=== PATIENT | male | born 1995 | race Caucasian/White ===

== ENCOUNTER 2024-12-29 03:55 | Emergency (ER) | payer OTHER, SELFPAY ==
--- NOTE | ~2024-12-29 | CT_ITS ---
CT abdomen pelvis w con Clinical History: left flank pain, poss stone . Comparison: None Technique: Axial images lung bases to symphysis pubis 100 mL Omnipaque 350 Coronal, sagittal reformats CT images acquired with automatic exposure control for dose reduction DLP: 651 mGy-cm Findings: Lung bases: Clear. Visualized heart and pericardium: Unremarkable. Liver: Tiny probable cyst along dome. Gallbladder: Unremarkable. Spleen: Unremarkable. Pancreas: Unremarkable. Adrenal glands: Unremarkable. Kidneys: Right kidney- No hydronephrosis. No renal stones. Left kidney- mild hydronephrosis. Perinephric stranding. Probable 1 mm upper pole stone. Distal esophagus/stomach: Unremarkable. Small bowel loops: Normal caliber and wall thickness. Colon: Normal caliber and wall thickness. Normal RLQ appendix. Nodes: No enlarged nodes. Peritoneum: No ascites. No free air. Urinary bladder: 2 mm stone left UVJ. Prostate: Unremarkable. Bones: No acute bony abnormality. Soft tissues: Unremarkable. Aorta: No aneurysm or dissection. IVC: Unremarkable. Main portal vein/SMV/splenic vein: Patent. IMPRESSION: 1. Mild hydronephrosis left kidney due to 2 mm UVJ stone. Reviewed, dictated and finalized at location R.
[2024-12-29 04:03] VITALS: BP 143/91; PULSE 91; RESP 20; O2SAT 100
[2024-12-29 04:06] VITALS: TEMP 36.6
--- NOTE | 2024-12-29 04:08 | ED.MALEGU ---
HPI - Male Genitourinary General Chief complaint: Urogenital-Male Stated complaint: possible kidney stone Time Seen by Provider: 12/29/24 03:58 Source: patient and family Mode of arrival: ambulatory Limitations: no limitations History of Present Illness HPI Narrative: This is a 29-year-old male no significant past medical history presents to the ED for flank pain. Patient states that about an hour ago, he was woken up with severe left flank pain that has begun to radiate to his left lower quadrant. He has had some nausea but no vomiting. He has had urinary urgency. Denies hematuria, fevers, chills, chest pain, shortness of breath, changes in bowel movements. He has never had this pain before. Related Data Allergies Allergy/AdvReac Type Severity Reaction Status Date / Time No Known Allergies Allergy Mild Verified 12/29/24 04:05 Review of Systems Review of Systems: Gen.: Denies fevers or chills Eyes: Denies eye pain or visual change ENT: Denies congestion Respiratory: Denies shortness of breath or cough CV: Denies chest pain or palpitations GI: As per HPI as per HPI Musculoskeletal: Denies back pain or muscle pain Neuro: Denies numbness, tingling, weakness or focal weakness Skin: Denies rash Except as documented, all other systems reviewed and negative Exam Narrative: APPEARANCE: Uncomfortable appearing, nontoxic, resting in bed EYES: EOMI HEENT: Normocephalic, atraumatic, OMM RESPIRATORY: No respiratory distress Clear to auscultation bilaterally with no rhonchi wheezing or rales. CARDIOVASCULAR: Regular rate and rhythm without murmurs rubs or gallops. ABDOMINAL: Soft, mild left-sided abdominal pain, CVA tenderness on the left MUSCULOSKELETAl: Moves all extremities. No clubbing, cyanosis or edema. NEURO: Awake and alert. Following commands, speech normal, no focal deficits SKIN:: Warm, dry. No rashes lesions or abrasions PSYCHIATRIC: Normal affect/mood, Course Vital Signs Vital signs: Vital Signs Pulse Rate 91 12/29/24 04:03 Respiratory Rate 20 12/29/24 04:03 Blood Pressure 143/91 H 12/29/24 04:03 Pulse Oximetry 100 12/29/24 04:03 Oxygen Delivery Room Air 12/29/24 04:03 Temperature 97.9 F 12/29/24 04:06 Pulse Rate 91 09/16/25 04:03 Respiratory Rate 20 12/29/24 04:03 Blood Pressure 143/91 H 12/29/24 04:03 Pulse Oximetry 100 12/29/24 04:03 Oxygen Delivery Room Air 12/29/24 04:03 MDM - Male Genitourinary MDM Narrative Medical decision making narrative: 29-year-old male who presents to the ED for left flank. On initial evaluation, patient was in mild distress, afebrile, hemodynamically stable. He did have CVA tenderness on the left. He had a mild leukocytosis at 12.5. CMP was without significant abnormalities. UA clear. Patient was given Toradol, Zofran, 1 L NS bolus with significant improvement of his pain. CT abdomen/pelvis was obtained and did reveal a 3 mm stone at the left UVJ. On re-evaluation, patient had complete resolution of his pain. He was deemed appropriate for discharge at time. He was advised follow-up with his PCP in the next week for evaluation. Patient was agreeable to this plan. Given strict return precautions. Differential Diagnosis Differential diagnosis: Likely other (UTI, ureterolithiasis, pyelonephritis, constipation, mass) Medical Records Attestation: I reviewed the patient's medical records. Lab Data Attestation: I reviewed the patient's lab results. 12/29/24 04:08 12/29/24 04:08 Labs: Lab Results 12/29/24 Range/Units 04:08 WBC 12.5 H (4.5-10.0) K/mm3 RBC 4.82 (4.6-6.20) M/mm3 Hgb 13.6 L (14.0-18.0) g/dL Hct 41.0 L (42.0-52.0) % MCV 85.1 (80-100) fl MCH 28.2 (26-34) pg MCHC 33.2 (32-36) g/dl RDW 11.9 (11.5-14.5) % Plt Count 267 (150-375) k/mm3 MPV 10.2 (7.4-10.4) fl Immature Gran % (Auto) 0.2 (0-0.5) % Neut % (Auto) 77.9 H (45.5-73.1) % Lymph % (Auto) 13.4 L (18.3-44.2) % [place] % (Auto) 6.9 (2.6-8.5) % Eos % (Auto) 1.3 (0-4.4) % Baso % (Auto) 0.3 (0.2-1.2) % Lymph # (Auto) 1.68 (0.9-3.2) K/mm3 [place] # (Auto) 0.9 H (0.1-0.6) K/mm3 Eos # (Auto) 0.2 (0-0.3) K/mm3 Baso # (Auto) 0.0 (0.0-0.1) K/mm3 Abs Immat Gran (auto) 0.03 (0.00-0.031) K/mm3 Absolute Neuts (auto) 9.8 H (1.3-6.7) K/mm3 Absolute Nucleated RBC 0.000 (0.0-0.012) K/mm3 Nucleated RBC % 0.0 (0.0-0.2) % Sodium 138 (137-145) mmol/L Potassium 4.1 (3.4-5.0) mmol/L Chloride 103 (98-107) mmol/L Carbon Dioxide 27 (22-30) mmol/L Anion Gap 8 (4-12) mmol/L BUN 19 (9-20) mg/dL Creatinine 1.14 (0.7-1.3) mg/dL Estim Creat Clear Calc 89 ml/min Estimated GFR > 60 (59 - ) Glucose 108 (65-110) mg/dL Calcium 9.1 (8.4-10.2) mg/dL Total Bilirubin 1.0 (0.2-1.3) mg/dL AST 30 (17-59) U/L ALT 37 (6-50) U/L Alkaline Phosphatase 105 (38-126) U/L Total Protein 7.2 (6.3-8.2) g/dL Albumin 4.5 (3.5-5.1) g/dL Urine Color Yellow (Yellow) Urine Appearance Clear (Clear) Urine pH 6.5 (5.0-9.0) Ur Specific [place] 1.030 (1.001-1.035) Urine Protein Negative (Negative) mg/dL Urine Glucose (UA) Negative (Negative) mg/dL Urine Ketones Trace H (Negative) mg/dL Ur Blood (Man) Negative (Negative) Urine Nitrate Negative (Negative) Urine Bilirubin Negative (Negative) Urine Urobilinogen 1.0 (<2.0) mg/dL Leukocyte Esterase Rfl Negative (Negative) KEHINDE/UL Imaging Data Attestation: I personally reviewed and interpreted this imaging study as follows: My impression: CT abdomen/pelvis on my interpretation: Approximately 3 mm stone within the bladder. No hydronephrosis Discharge Plan Discharge Clinical Impression: Ureterolithiasis Patient Disposition: Home Condition: Stable Instructions: Antibiotic Form, Kidney Stones (ED) Additional Instructions: Take Tylenol ibuprofen for ear pain. Take Zofran as prescribed. Follow-up with your PCP in the next week for re-evaluation. Return the ED for new or worsening symptoms. Patient Language: Kyrgyz Prescriptions: New ondansetron 4 mg tablet,disintegrating 4 mg PO Q8H PRN (Reason: nausea and vomiting) Qty: 14 0RF Follow-up/Referrals: PHYSICIAN,AUTOMOBILE BUMPER STRAIGHTENER [Primary Care Provider, Internal Medicine] Eyad Donovan MD [Physician, Family Practice]
[2024-12-29] MEDS: SODIUM CHLORIDE 0.9% IV 1,000 ML 999 ML IV CONT (04:13)
[2024-12-29] MEDS: ONDANSETRON INJ 4 MG/2 ML VIAL IV PUSH (04:13)
[2024-12-29] MEDS: KETOROLAC 30 MG/ML VIAL (*BKC) IV PUSH (04:13)
[2024-12-29 04:24] LABS: Add Urine Microscopic? NO; Appearance Urine Clear (Clear); Glucose Urine UA Negative (Negative); Hematocrit 41.0 % (42.0-52.0); Hemoglobin 13.6 g/dL (14.0-18.0); Immature Granulocyte Percent A 0.2 % (0-0.5); Leukocyte Esterase Ur Negative LEU/UL (Negative); Lymphocytes Absolute Auto 1.68 K/mm3 (0.9-3.2); Mean Corpuscular HGB Conc 33.2 g/dl (32-36); Mean Corpuscular Hemoglobin 28.2 pg (26-34); Mean Corpuscular Volume 85.1 fl (80-100); Nitrate Urine Negative (Negative); Nucleated Red Blood Cells Absolute Auto 0.000 K/mm3 (0.0-0.012); Nucleated Red Blood Cells Perc 0.0 % (0.0-0.2); Platelet Count Result 267 k/mm3 (150-375); Red Blood Count 4.82 M/mm3 (4.6-6.20); Specific Grav Ur 1.030 (1.001-1.035); White Blood Count 12.5 K/mm3 (4.5-10.0)
[2024-12-29 04:37] LABS: Alanine Aminotransferase 37 U/L (6-50); Albumin Level 4.5 g/dL (3.5-5.1); Alkaline Phosphatase 105 U/L (38-126); Anion Gap 8 mmol/L (4-12); Aspartate Amino Transferase 30 U/L (17-59); Bilirubin,Total 1.0 mg/dL (0.2-1.3); Blood Urea Nitrogen 19 mg/dL (9-20); Calcium 9.1 mg/dL (8.4-10.2); Carbon Dioxide 27 mmol/L (22-30); Chloride 103 mmol/L (98-107); Estimated CRCL calculation 89 ml/min; Estimated Glomerular Filt Rate > 60; Glucose 108 mg/dL (65-110); Potassium 4.1 mmol/L (3.4-5.0); Sodium 138 mmol/L (137-145); Total Protein 7.2 g/dL (6.3-8.2)
== END 2024-12-29 05:56 | disposition home or self-care (01) ==
PROVIDERS: Emergency Provider Student in an Organized Health Care Education/Training Program
DX: N20.1 Calculus of ureter (principal)
CPT/HCPCS: 36415; 74177; 80053; 81003; 85025; 96361; 96374; 96375; 99284; J1885; J2405; J7030; Q9967

== ENCOUNTER 2025-03-13 16:52 | Emergency (ER) | payer OTHER, SELFPAY ==
--- NOTE | ~2025-03-13 | CT_ITS ---
EXAMINATION: CT diagnostic chest w con, 03/13/2025 18:30 DIRECTOR OF ACCOUNTING HISTORY: chest pain, negative chest x-ray COMPARISON: No comparisons available. TECHNIQUE: CT scan of the chest was performed with contrast. Isovue 300, 92cc injected IV. One or more of the following dose reduction techniques were used: automated exposure control, adjustment of the mA and/or kV according to patient size, use of iterative reconstruction technique. FINDINGS: No significant coronary calcification is present ([id number]) LUNGS: There is abnormal density within the anterior superior mediastinum probably representing residual thymic tissue, follow-up is suggested. HEART AND PERICARDIUM: Within normal limits. AORTA: Normal caliber aorta. ADENOPATHY/MEDIASTINUM: Prominent minimally enlarged pretracheal node 1.1 x 1.1 cm. LIMITED VIEWS OF THE ABDOMEN: Within normal limits. OSSEOUS STRUCTURES: No acute osseous abnormality.No suspicious lesions. OVERLYING SOFT TISSUES: Unremarkable. THYROID: The thyroid is unremarkable. IMPRESSION: 1. No etiology identified to explain the patient's symptoms. Follow up suggested if symptoms persist. Reviewed, dictated and finalized at location P. CTOR OF ACCOUNTING IMPRESSION: 1. No etiology identified to explain the patient's symptoms. Follow up suggeste d if symptoms persist.
--- NOTE | ~2025-03-13 | XR_ITS ---
EXAMINATION: XR chest 1V portable COMPARISON: No comparisons available. HISTORY: CP FINDINGS: The lungs are clear, no effusion. No pneumothorax. Heart is normal size. Mediastinal and hilar contours are within normal limits. Bony thorax no acute abnormality. Miscellaneous: None Impression: No acute cardiopulmonary abnormality. Reviewed, dictated and finalized at location P. T REGISTRY OFFICER Impression: No acute cardiopulmonary abnormality.
[2025-03-13 16:55] VITALS: BP 123/92; PULSE 98; RESP 20; TEMP 36.9; O2SAT 99
--- OUTSIDE RECORDS SUMMARY | 2025-03-13 16:56 | XMS_ITS | Clinical Summary ---
Author Organization [facility] [address] Address [address] [place] [address] Care Team Providers Care Rn Infusion Name Role Phone Unknown, Notinfile Primary Care Provider Unavail able Allergies No known active allergies Medications No known medications Active Problems No known active problems Social History Tobacco Use Types Packs/Day Years Used Date Smoking Tobacco: Never Assessed Personal Safety Answer Date Recorded Getting School Help Needed Not on file 01/05 Sex and Gender Information Value Date Recorded Sex Assigned at Not on file Legal Sex Male 11:25 AM CDT Gender Identity Not on file Sexual Orientation Not on file Last Filed Vital Signs Vital Sign Reading Time Taken Comments Blood Pressure 119/73 01/06/2024 11:44 AM CDT Pulse 97 01/06/2024 11:44 AM CDT Temperature 36.8 C (98.3 F) 01/06/2024 11:44 AM CDT Respiratory Rate 18 01/06/2024 11:44 AM CDT Oxygen Saturation 99% 01/06/2024 11:44 AM CDT Inhaled Oxygen Concentration - - Weight 86.2 kg (190 lb) 01/06/2024 11:44 AM CDT Height 180.3 cm (5' 11) 01/06/2024 11:44 AM CDT Body Mass Index 26.5 01/06/2024 11:44 AM CDT Plan of Treatment Health Maintenance Due Date Last Done Comments Depression Screening 1993 Hepatitis C Screening 1993 DTaP/Tdap/Td Vaccine (1 - Tdap) 2004 Varicella Vaccines (1 of 2 - 13+ 2-dose series) 2006 Hepatitis B Screening 10/11/2011 Regular Well Visit/Exam 18-64 10/11/2011 HPV Vaccines (1 - 3-dose SCD M series) 2020 Influenza Vaccine (#1) 2024 Pneumococcal vaccine <65 Aged Out No longer eligible based on patient's age to complete this topic Insurance [facility] CHOICE PLUS Care Teams Rn Infusion Relationship Specialty Start Date End Date Unknown, Notinfile PCP - General 01/06/24
--- NOTE | 2025-03-13 17:04 | ECG_ITS ---
Test Date: 2025-03-13 20:23:06 Measurements Intervals [place] Rate: 80 P: 47 NV: 124 QRS: 59 QRSD: 94 T: 49 QT: 346 QTc: 400 Interpretive Statements SINUS RHYTHM NORMAL ELECTROCARDIOGRAM Compared to ECG 03/13/2025 17:12:19 Sinus tachycardia no longer present Electronically Signed On 03-14-2025 09:16:30 QUALITY CONTROL MICROBIOLOGIST by Ashutosh uMnroe M.D.
--- NOTE | 2025-03-13 17:08 | ED_ITS ---
HPI - Chest Pain General Chief Complaint: Chest Pain Stated Complaint: chest pain Time Seen by Provider: 03/13/25 17:06 History of Present Illness HPI narrative: Patient is a 29-year-old male who presents to the ER with chest pain that started yesterday. He reports most of the pain is located left to his midsternal area. Patient reports the pain is worse with movement. He denies any shortness a breath, recent fevers, cough, wheezing, or sore throat. Patient endorses a history of rhabdomyolysis and a left bicep DVT. He denies any other medical history relevant to this ER visit. Related Data Allergies Allergy/AdvReac Type Severity Reaction Status Date / Time No Known Allergies Allergy Mild Verified 12/29/24 04:05 Review of Systems 2 Review of Systems: All systems reviewed & are unremarkable except as noted in HPI and below Course Vital Signs Vital signs: Vital Signs Temperature 36.9 C 03/13/25 16:55 Pulse Rate 98 03/13/25 16:55 Respiratory Rate 20 03/13/25 16:55 Blood Pressure 123/92 H 03/13/25 16:55 Pulse Oximetry 99 03/13/25 16:55 Temperature 36.7 C 03/13/25 18:46 Pulse Rate 83 03/13/25 20:30 Respiratory Rate 16 03/13/25 18:41 Blood Pressure 114/73 03/13/25 20:30 Pulse Oximetry 99 03/13/25 20:30 Oxygen Delivery Room Air 03/13/25 17:14 MDM - Chest Pain MDM Narrative Medical decision making narrative: Patient is a 29-year-old male who presents to the ER with chest pain that started yesterday. He reports most of the pain is located left to his midsternal area. Patient reports the pain is worse with movement. He denies any shortness a breath, recent fevers, cough, wheezing, or sore throat. Patient endorses a history of rhabdomyolysis and a left bicep DVT. He denies any other medical history relevant to this ER visit. Labs Ordered: CBC, CMP, COVID/flu/RSV, lactic acid, Imaging Ordered: CT chest diagnostic Medications Ordered: Toradol 15 mg IV, 1 L normal saline IV bolus Results: Pt's CT scan indicates No significant coronary calcification is present ([id number]) LUNGS: There is abnormal density within the anterior superior mediastinum probably representing residual thymic tissue, follow-up is suggested. HEART AND PERICARDIUM: Within normal limits. AORTA: Normal caliber aorta. ADENOPATHY/MEDIASTINUM: Prominent minimally enlarged pretracheal node 1.1 x 1.1 cm. LIMITED VIEWS OF THE ABDOMEN: Within normal limits. OSSEOUS STRUCTURES: No acute osseous abnormality.No suspicious lesions. OVERLYING SOFT TISSUES: Unremarkable. THYROID: The thyroid is unremarkable. Diagnosis: Atypical chest pain, costochondritis Risks: HEART score: low risk HEART Score for Major Cardiac Events from [employer] on 03/13/2025 All calculations should be rechecked by clinician prior to use RESULT SUMMARY: 1 points Low Score (0-3 points) Risk of MACE of 0.9-1.7%. INPUTS: History ?> 1 = Moderately suspicious EKG ?> 0 = Normal Age ?> 0 = <45 Risk factors ?> 0 = No known risk factors Initial troponin ?> 0 = <Normal limit Patient Education/Shared MDM: Results of lab work and imaging shared with patient. He endorses improvement of symptoms but will be given a dose of Toradol here in the ER prior to discharge. Patient strongly advised to maintain hydration status upon discharge and follow-up with his PCP as soon as possible for further evaluation. He will be discharged home with a prescription for cyclobenzaprine and ibuprofen 800 mg. Strict return precautions provided. Patient verbalized understanding and is in agreement with plan. Vital signs stable at time of discharge. All questions answered. Lab Data Attestation: I reviewed the patient's lab results. 03/13/25 17:18 03/13/25 17:17 Labs: Lab Results 03/13/25 03/13/25 03/13/25 Range/Units 17:17 17:18 17:59 WBC 9.9 (4.5-10.0) K/mm3 RBC 5.05 (4.6-6.20) M/mm3 Hgb 14.4 (14.0-18.0) g/dL Hct 42.9 (42.0-52.0) % MCV 85.0 (80-100) fl MCH 28.5 (26-34) pg MCHC 33.6 (32-36) g/dl RDW 12.2 (11.5-14.5) % Plt Count 265 (150-375) k/mm3 MPV 10.4 (7.4-10.4) fl Immature Gran % (Auto) 0.2 (0-0.5) % Neut % (Auto) 71.8 (45.5-73.1) % Lymph % (Auto) 17.4 L (18.3-44.2) % [place] % (Auto) 8.4 (2.6-8.5) % Eos % (Auto) 1.9 (0-4.4) % Baso % (Auto) 0.3 (0.2-1.2) % Lymph # (Auto) 1.72 (0.9-3.2) K/mm3 [place] # (Auto) 0.8 H (0.1-0.6) K/mm3 Eos # (Auto) 0.2 (0-0.3) K/mm3 Baso # (Auto) 0.0 (0.0-0.1) K/mm3 Abs Immat Gran (auto) 0.02 (0.00-0.031) K/mm3 Absolute Neuts (auto) 7.1 H (1.3-6.7) K/mm3 Absolute Nucleated RBC 0.000 (0.0-0.012) K/mm3 Nucleated RBC % 0.0 (0.0-0.2) % PT 13.5 (11.1-14.7) Seconds INR 1.0 APTT 22.9 (22.3-36.8) Seconds D-Dimer < 0.27 (<0.48) ug/mL Sodium 139 (137-145) mmol/L Potassium 4.0 (3.4-5.0) mmol/L Chloride 102 (98-107) mmol/L Carbon Dioxide 30 (22-30) mmol/L Anion Gap 7 (4-12) mmol/L BUN 15 (9-20) mg/dL Creatinine 1.08 (0.7-1.3) mg/dL Estim Creat Clear Calc Not Reportable Estimated GFR > 60 (59 - ) Glucose 86 (65-110) mg/dL Lactic Acid 0.9 (0.7-2.0) mmol/L Calcium 9.3 (8.4-10.2) mg/dL Total Bilirubin 0.9 (0.2-1.3) mg/dL AST 31 (17-59) U/L ALT 25 (6-50) U/L Alkaline Phosphatase 90 (38-126) U/L Total Creatine Kinase 151 Cancelled (55-170) U/L Troponin I < 0.012 (0.000-0.034) ng/mL Total Protein 7.1 (6.3-8.2) g/dL Albumin 4.4 (3.5-5.1) g/dL Lipase 61 (23-300) U/L TSH (Reflex) 1.210 (0.465-4.68) uIU/mL Urine Color (Yellow) Urine Appearance (Clear) Urine pH (5.0-9.0) Ur Specific [place] (1.001-1.035) Urine Protein (Negative) mg/dL Urine Glucose (UA) (Negative) mg/dL Urine Ketones (Negative) mg/dL Ur Blood (Man) (Negative) Urine Nitrate (Negative) Urine Bilirubin (Negative) Urine Urobilinogen (<2.0) mg/dL Leukocyte Esterase Rfl (Negative) KEHINDE/UL Urine RBC (0-2) /hpf Urine WBC (0-3) /hpf Ur Squamous Epith Cells (Few) /hpf Urine Bacteria /hpf Urine Casts Urine Opiates Screen (Negative) Urine Methadone Screen (Negative) Ur Barbiturates Screen (Negative) Ur Phencyclidine Scrn (Negative) Ur Amphetamine Screen (Negative) U Benzodiazepines Scrn (Negative) Urine Cocaine Screen (Negative) U Cannabinoids Screen (Negative) Influenza A (RT-PCR) (Negative) Influenza B (RT-PCR) (Negative) RSV (RT-PCR) (Negative) SARS-CoV-2 RNA (RT-PCR) (Negative) 03/13/25 03/13/25 03/13/25 Range/Units 18:38 18:39 19:55 WBC (4.5-10.0) K/mm3 RBC (4.6-6.20) M/mm3 Hgb (14.0-18.0) g/dL Hct (42.0-52.0) % MCV (80-100) fl MCH (26-34) pg MCHC (32-36) g/dl RDW (11.5-14.5) % Plt Count (150-375) k/mm3 MPV (7.4-10.4) fl Immature Gran % (Auto) (0-0.5) % Neut % (Auto) (45.5-73.1) % Lymph % (Auto) (18.3-44.2) % [place] % (Auto) (2.6-8.5) % Eos % (Auto) (0-4.4) % Baso % (Auto) (0.2-1.2) % Lymph # (Auto) (0.9-3.2) K/mm3 [place] # (Auto) (0.1-0.6) K/mm3 Eos # (Auto) (0-0.3) K/mm3 Baso # (Auto) (0.0-0.1) K/mm3 Abs Immat Gran (auto) (0.00-0.031) K/mm3 Absolute Neuts (auto) (1.3-6.7) K/mm3 Absolute Nucleated RBC (0.0-0.012) K/mm3 Nucleated RBC % (0.0-0.2) % PT (11.1-14.7) Seconds INR APTT (22.3-36.8) Seconds D-Dimer (<0.48) ug/mL Sodium (137-145) mmol/L Potassium (3.4-5.0) mmol/L Chloride (98-107) mmol/L Carbon Dioxide (22-30) mmol/L Anion Gap (4-12) mmol/L BUN (9-20) mg/dL Creatinine (0.7-1.3) mg/dL Estim Creat Clear Calc Estimated GFR (59 - ) Glucose (65-110) mg/dL Lactic Acid (0.7-2.0) mmol/L Calcium (8.4-10.2) mg/dL Total Bilirubin (0.2-1.3) mg/dL AST (17-59) U/L ALT (6-50) U/L Alkaline Phosphatase (38-126) U/L Total Creatine Kinase (55-170) U/L Troponin I 0.020 D (0.000-0.034) ng/mL Total Protein (6.3-8.2) g/dL Albumin (3.5-5.1) g/dL Lipase (23-300) U/L TSH (Reflex) (0.465-4.68) uIU/mL Urine Color Yellow (Yellow) Urine Appearance Turbid H (Clear) Urine pH 7.0 (5.0-9.0) Ur Specific [place] 1.022 (1.001-1.035) Urine Protein Negative (Negative) mg/dL Urine Glucose (UA) Negative (Negative) mg/dL Urine Ketones Negative (Negative) mg/dL Ur Blood (Man) Negative (Negative) Urine Nitrate Negative (Negative) Urine Bilirubin Negative (Negative) Urine Urobilinogen 1.0 (<2.0) mg/dL Leukocyte Esterase Rfl Negative (Negative) KEHINDE/UL Urine RBC 0-2 (0-2) /hpf Urine WBC 0-5 (0-3) /hpf Ur Squamous Epith Cells None seen (Few) /hpf Urine Bacteria None seen /hpf Urine Casts 0-2 Urine Opiates Screen Negative (Negative) Urine Methadone Screen Negative (Negative) Ur Barbiturates Screen Negative (Negative) Ur Phencyclidine Scrn Negative (Negative) Ur Amphetamine Screen Negative (Negative) U Benzodiazepines Scrn Negative (Negative) Urine Cocaine Screen Negative (Negative) U Cannabinoids Screen Negative (Negative) Influenza A (RT-PCR) Negative (Negative) Influenza B (RT-PCR) Negative (Negative) RSV (RT-PCR) Negative (Negative) SARS-CoV-2 RNA (RT-PCR) Negative (Negative) Imaging Data Attestation: I personally reviewed and interpreted this imaging study as follows: Radiologist's impression: Impressions Chest X-Ray 03/13/25 17:36 Impression: No acute cardiopulmonary abnormality. Chest CT 03/13/25 19:23 IMPRESSION: 1. No etiology identified to explain the patient's symptoms. Follow up suggested if symptoms persist. Discharge Plan Discharge Clinical Impression: Atypical chest pain, Costalchondritis Patient Disposition: Home Condition: Stable Instructions: Antibiotic Form, Musculoskeletal Pain (ED), Noncardiac Chest Pain (ED) Additional Instructions: Please return to the ER with any worsening symptoms. Follow-up with primary care provider as soon as possible for further evaluation. Take all medications as prescribed, including regularly scheduled medications. You may take Cyclobenzaprine, ibuprofen 800 mg and Tylenol 1 g every 8 hours as needed for pain control. Patient Language: Kuwaiti Prescriptions: New cyclobenzaprine 5 mg tablet 5 mg PO TID PRN (Reason: muscle spasm) Qty: 30 0RF ibuprofen 800 mg tablet 800 mg PO TID PRN (Reason: pain) Qty: 30 0RF No Action ondansetron 4 mg tablet,disintegrating 4 mg PO Q8H PRN (Reason: nausea and vomiting) Qty: 14 0RF Follow-up/Referrals: PHYSICIAN NOT ON STAFF,NONSTAFF [Non-Staff] Eyad Donovan MD [Physician, Family Practice] Referral Note: primary care provider Stand Alone Forms: Work/School Release IP Time of Disposition: 20:39
[2025-03-13 17:14] VITALS: O2SAT 96
[2025-03-13] MEDS: SODIUM CHLORIDE 0.9% IV 1,000 ML 999 ML IV CONT (17:20)
[2025-03-13] MEDS: ASPIRIN 81 MG CHEWABLE TABLET 324 MG PO (17:21)
[2025-03-13 17:30] LABS: Hematocrit 42.9 % (42.0-52.0); Hemoglobin 14.4 g/dL (14.0-18.0); Immature Granulocyte Percent A 0.2 % (0-0.5); Lymphocytes Absolute Auto 1.72 K/mm3 (0.9-3.2); Mean Corpuscular HGB Conc 33.6 g/dl (32-36); Mean Corpuscular Hemoglobin 28.5 pg (26-34); Mean Corpuscular Volume 85.0 fl (80-100); Nucleated Red Blood Cells Absolute Auto 0.000 K/mm3 (0.0-0.012); Nucleated Red Blood Cells Perc 0.0 % (0.0-0.2); Platelet Count Result 265 k/mm3 (150-375); Red Blood Count 5.05 M/mm3 (4.6-6.20); White Blood Count 9.9 K/mm3 (4.5-10.0)
[2025-03-13 17:40] LABS: INR 1.0; Prothrombin Time 13.5 Seconds (11.1-14.7)
[2025-03-13 17:41] LABS: Partial Thromboplastin Time 22.9 Seconds (22.3-36.8)
[2025-03-13 17:46] LABS: Alanine Aminotransferase 25 U/L (6-50); Albumin Level 4.4 g/dL (3.5-5.1); Alkaline Phosphatase 90 U/L (38-126); Anion Gap 7 mmol/L (4-12); Aspartate Amino Transferase 31 U/L (17-59); Bilirubin,Total 0.9 mg/dL (0.2-1.3); Blood Urea Nitrogen 15 mg/dL (9-20); Calcium 9.3 mg/dL (8.4-10.2); Carbon Dioxide 30 mmol/L (22-30); Chloride 102 mmol/L (98-107); Creatine Kinase 151 U/L (55-170); Estimated Glomerular Filt Rate > 60; Glucose 86 mg/dL (65-110); Lipase 61 U/L (23-300); Potassium 4.0 mmol/L (3.4-5.0); Sodium 139 mmol/L (137-145); Total Protein 7.1 g/dL (6.3-8.2)
[2025-03-13 17:58] LABS: Troponin I < 0.012 ng/mL (0.000-0.034)
[2025-03-13 18:41] VITALS: BP 113/72; PULSE 84; RESP 16; O2SAT 97
[2025-03-13 18:46] VITALS: TEMP 36.7
[2025-03-13 18:50] LABS: Thyroid Stimulating Hormone Reflex 1.210 uIU/mL (0.465-4.68)
--- OUTSIDE RECORDS SUMMARY | 2025-03-13 19:13 | XMS_ITS | Clinical Summary ---
Author Organization [facility] [address] Address [address] [place] [address] Care Team Providers Care Prefinish Operator Name Role Phone Unknown, Notinfile Primary Care [...] patient's age to complete this topic Insurance [facility] CHOICE PLUS [facility] HMO/PPO Address: [facility] [address] [place] [address] Care Teams Prefinish Operator Relationship Specialty Start Date End Date Unknown, Notinfile PCP - General 01/06/24
[2025-03-13 19:19] LABS: Add Urine Microscopic? YES; Appearance Urine Turbid (Clear); Glucose Urine UA Negative (Negative); Leukocyte Esterase Ur Negative LEU/UL (Negative); Nitrate Urine Negative (Negative); Non Pathogenic Casts 0-2; Specific Grav Ur 1.022 (1.001-1.035)
[2025-03-13 19:26] LABS: Influenza A QL RT-PCR Negative (Negative); Influenza B QL RT-PCR Negative (Negative); RSV RNA, RT-PCR Negative (Negative); SARS-CoV-2 RNA PCR Negative (Negative)
[2025-03-13 19:31] LABS: Cannabinoid Screen Urine Negative (Negative)
--- NOTE | 2025-03-13 19:52 | ECG_ITS ---
Test Date: 2025-03-13 17:12:19 Measurements Intervals [place] Rate: 101 P: 43 MT: 116 QRS: 59 QRSD: 94 T: 44 QT: 310 QTc: 403 Interpretive Statements SINUS TACHYCARDIA OTHERWISE NORMAL ECG No previous ECG available for comparison Electronically Signed On 03-14-2025 09:14:15 SENIOR QUALITY METHODS SPECIALIST by Ashutosh Munroe M.D.
[2025-03-13 20:21] LABS: Troponin I 0.020 ng/mL (0.000-0.034)
[2025-03-13 20:30] VITALS: BP 114/73; PULSE 83; O2SAT 99
[2025-03-13] MEDS: KETOROLAC 15 MG/ML VIAL (*BKC) IV PUSH (21:09)
[2025-03-13 21:11] VITALS: BP 108/67; PULSE 84; RESP 16; O2SAT 97
== END 2025-03-13 21:15 | disposition home or self-care (01) ==
PROVIDERS: Emergency Medicine; Emergency Provider Registered Nurse
DX: M94.0 Chondrocostal junction syndrome [Tietze] (principal); R07.89 Other chest pain; Z20.822 Contact with and (suspected) exposure to COVID-19; Z86.718 Personal history of other venous thrombosis and embolism; R00.0 Tachycardia, unspecified
CPT/HCPCS: 36415; 71045; 71260; 80053; 80307; 81001; 82550; 83605; 83690; 84443; 84484; 85025; 85380; 85610; 85730; 87637; 93005; 96361; 96374; 99284; A9270; J1885; J7030; Q9967